=== PATIENT | male | born 1940 | race Caucasian/White ===

== ENCOUNTER 2021-01-20 08:00 | Outpatient (CLI) | payer MEDICARE, OTHER ==
--- NOTE | 2021-01-20 09:28 | XRAY Report ---
PROCEDURE: Ribs w/PA Chest LT INDICATIONS: CONTUSION OF LEFT FRONT WALL OF THORAX TECHNIQUE: 3 views of the left ribs were acquired, along with a single view chest. COMPARISON: None FINDINGS: Surgical changes and devices: None. Bones and chest wall: No fractures or dislocations. No suspicious bony lesions. Overlying soft tis sues appear unremarkable. Lungs and pleura: No pleural effusions or pneumothorax. Lungs appear clear. Mediastinum: Mediastinal contours appear normal. Heart size is normal. IMPRESSION: No displaced rib fracture. No acute cardiopulmonary disease process. Reviewed by: Beth Bond MD, PhD on 01/20/2021 9:26 AM PDT Approved by: Beth Bond MD, PhD on 01/20/2021 9:26 AM PDT Station ID: [id number]
== END 2021-01-20 23:59 | disposition home or self-care (01) ==
LOC: DI.S 08:00
PROVIDERS: ATTEND Physician Assistant Medical
DX: S20.212D Contusion of left front wall of thorax, subsequent encounter (principal)

== ENCOUNTER 2023-05-10 02:36 | Outpatient (CLI) | payer OTHER | END 2023-05-10 02:37 | disposition critical access hospital (66) | LOC: EMS 02:36 | DX: R53.1 Weakness (principal); R53.83 Other fatigue | CPT/HCPCS: A0425; A0427 ==

== ENCOUNTER 2023-05-10 03:15 | Emergency (ER) | payer MEDICARE, OTHER ==
[2023-05-10 03:38] LABS: BASOPHILS % (AUTO) 0.4 %; EOSINOPHILS # (AUTO) 0.2 10^3/uL (0.0-0.7); EOSINOPHILS % (AUTO) 2.2 %; HCT - HEMATOCRIT 45.4 % (42.0-52.0); HGB - HEMOGLOBIN 15.1 g/dL (14.0-18.0); LYMPHOCYTES # (AUTO) 1.5 10^3/uL (1.5-3.5); LYMPHOCYTES % (AUTO) 17.8 %; MEAN CORPUSCULAR HEMOGLOBIN 30.1 pg (27.0-31.0); MEAN CORPUSCULAR HGB CONC 33.3 g/dL (32.0-36.0); MEAN CORPUSCULAR VOLUME 90.6 fL (80.0-94.0); MEAN PLATELET VOLUME 9.9 fL (7.4-11.4); NEUTROPHILS # (AUTO) 5.5 10^3/uL (1.5-6.6); PLT - PLATELET COUNT 149 10^3/uL (130-450); RED BLOOD COUNT 5.01 10^6/uL (4.70-6.10); RED CELL DISTRIBUTION WIDTH 14.6 % (12.0-15.0); WHITE BLOOD COUNT 8.2 x10^3/uL (4.8-10.8)
--- NOTE | 2023-05-10 03:40 | ED Physician Documentation ---
History of Present Illness - Stated complaint Stated Complaint: GEN WEAKNESS - History obtained from History obtained from: Patient - Additonal information Additional information: Patient is an 82-year-old male presenting for evaluation of generalized weakness that he noticed in the middle of the night. Patient reports having decreased oral intake throughout the day with only drinking a glass of lemonade and a Coke today. He also reports not eating much for dinner but reports that he did eat a [place] bar. Patient woke up in the middle of the night feeling very hot and was trying to cool down but felt very weak. Medics note that his house is very warm and that his bedroom feels like at least 90 degrees despite the use of fans. There is no central AC or home AC units. Patient was able to ambulate to their stretcher. They started an IV and started administering IV fluids. Patient reports already feeling better. No headache or syncope. No chest pain, shortness of air, abdominal symptoms. Review of Systems Constitutional: denies: Fever Cardiac: denies: Chest pain / pressure Respiratory: denies: Dyspnea GI: denies: Abdominal Pain Neurologic: denies: Headache PD PAST MEDICAL HISTORY - Allergies Allergies/Adverse Reactions: Allergies Allergy/AdvReac Type Severity Reaction Status Date / Time Penicillins Allergy Hives Verified 05/10/23 03:28 PD ED PE NORMAL - General General: Alert and oriented X 3, No acute distress, Well developed/nourished - HEENT HEENT: Atraumatic, PERRL, EOMI - Neck Neck: Supple, no meningeal sign - Cardiac Cardiac: RRR, No murmur - Respiratory Respiratory: No respiratory distress, Clear bilaterally - Abdomen Abdomen: Soft, Non tender - Derm Derm: Warm and dry - Extremities Extremities: Other (Bilateral lower extremity edema) - Neuro Neuro: Alert and oriented X 3, No motor deficit, No sensory deficit, Normal speech, Other (Normal gait) Results - Vitals Vitals: Vital Signs - 24 hr 05/10/23 05/10/23 05/10/23 03:28 04:29 04:53 Temperature 36.0 C L Heart Rate 72 78 75 Respiratory 16 16 16 Rate Blood Pressure 176/75 H 174/69 H 148/97 H O2 Saturation 98 99 99 Oxygen O2 Source Room air - EKG (time done) 0330 EKG releavant findings:: EKG personally interpreted by author of this note. Relevant findings are: Rate 74, normal sinus rhythm, no STEMI Rate: Rate (enter#) (74) Rhythm: NSR Intervals: No: Prolonged QT Ischemia: No: ST elevation c/w ischemia Compare to prior EKG: Old EKG unavailable - Labs Labs: Laboratory Tests 05/10/23 05/10/23 03:24 03:24 WBC 8.2 RBC 5.01 Hgb 15.1 Hct 45.4 MCV 90.6 MCH 30.1 MCHC 33.3 RDW 14.6 Plt Count 149 MPV 9.9 Neut # (Auto) 5.5 Lymph # (Auto) 1.5 Dawson # (Auto) 1.0 Eos # (Auto) 0.2 Baso # (Auto) 0.0 Absolute Nucleated RBC 0.00 Nucleated RBC % 0.0 Sodium 135 Potassium 3.6 Chloride 104 Carbon Dioxide 22 Anion Gap 9.0 BUN 28 H Creatinine 1.5 H Estimated GFR (MDRD) 45 L Glucose 240 H Calcium 9.6 Total Bilirubin 1.1 H AST 17 ALT 15 Alkaline Phosphatase 46 Total Protein 7.2 Albumin 4.3 Globulin 2.9 Albumin/Globulin Ratio 1.5 Lipase 6 L PD Medical Decision Making - ED course Complexity details: reviewed results, re-evaluated patient, d/w patient, d/w family ED course: Patient presenting for evaluation of generalized weakness in the setting of decreased oral intake today and warmer temperatures. EMS noted that the home temperature seem to be quite elevated inside. Patient has no focal deficits. No chest pain to suggest ACS. Does not appear septic. Feeling better being in a cooler environment and with IV fluids. CBC and chemistries obtained and reviewed without significant abnormalities. Creatinine is 1.5 which seems consistent with prior labs for the patient. Labs from [facility] in April 2022 demonstrated creatinine of 1.62. Patient received IV fluids which were initiated from EMS. He reports feeling back to his usual self. He was counseled on the importance of hydration as well as trying to stay in a cooler environment. Patient is counseled on concerning symptoms to return for. Patient and are contemplating staying in a hotel for the next several days. Departure - Departure Disposition: 01 Home, Self Care Clinical Impression: Weakness Condition: Stable Instructions: ED Weakness [facility] Comments: You were evaluated for weakness this evening which is likely related to a combination of dehydration as well as the temperature of your environment. It is important to stay hydrated and eat proper meals. Given the higher temperatures it is also important to try and limit your heat exposure or stay in a cooler environment. If you develop any new or worsening symptoms please return to the emergency department. Forms: PCP List Discharge Date/Time: 05/10/23 04:53
--- OUTSIDE RECORDS SUMMARY | 2023-05-10 03:45 | EXTERNAL MEDICAL SUMMARY RPT | Continuity of Care Document ---
Author Name Unknown Address [address] [place] [address] Phone Organization [facility] Address [address] [place] [address] Phone Care Team Providers Care B2B Sales Consultant Name Role Phone Unavailable Unavailable Unavailable Stacey Ceronp, Jason Unavailable Unavailabl e Pedro Castellano, Yarelis Wray Unavailable Unavailabl e Medications date description facility 2023-02-16 00:00 mupirocin [facility] [place] 2023-02-16 00:00 mupirocin [facility] [place] 2023-02-16 00:00 cephalexin [facility] [place] 2023-02-16 00:00 cephalexin [facility] [place] 2023-02-16 00:00 cephalexin [facility] [place] 2023-02-16 00:00 cephalexin [facility] [place] 2023-02-16 00:00 mupirocin [facility] [place] 2023-02-16 00:00 mupirocin [facility] [place] 2023-02-16 00:00 cephalexin [facility] [place] 2023-02-16 00:00 cephalexin [facility] [place] 2023-02-16 00:00 mupirocin [facility] [place] 2023-02-16 00:00 mupirocin [facility] [place] 2023-02-16 00:00 cephalexin [facility] [place] 2023-02-16 00:00 cephalexin [facility] [place] 2023-02-20 00:00 [facility]su[facility]atin [facility] 2023-02-21 00:00 [facility]suvastatin [facility] 2023-02-23 00:00 [facility]suvastatin [facility] 2023-02-20 00:00 [facility]suvastatin [facility] 2023-02-21 00:00 [facility]suvastatin [facility] 2023-02-23 00:00 [facility]suvastatin [facility] 2023-02-20 00:00 [facility]suvastatin [facility] 2023-02-21 00:00 [facility]suvastatin [facility] 2023-02-23 00:00 rosuvastatin [facility] [place] 2023-02-20 00:00 rosuvastatin [facility] [place] 2023-02-21 00:00 rosuvastatin [facility] [place] 2023-02-23 00:00 rosuvastatin [facility] [place] 2023-02-16 00:00 mupirocin [facility] [place] 2023-02-16 00:00 mupirocin [facility] Problems date description facility 2023-02-16 00:00 Cellulitis [facility] [place] 2023-02-16 00:00 Cellulitis [facility] 2023-02-16 00:00 Cellulitis and absce ss of unspecified sites [facility] 2023-02-16 00:00 Cellulitis and absce ss of unspecified sites [facility] 2023-02-16 00:00 Cellulitis, unspecified [facility] 2023-02-16 00:00 Cellulitis, unspecified [facility] Procedures date description facility 2023-02-16 00:00 Visit Code Hold [facility] 2023-02-16 00:00 Visit Code Hold [facility] [place] Social History date description facility 2023-02-16 00:00 Never smoker [facility] [place] 2023-02-16 00:[address] Vital Signs date measurement value units 2023-02-16 00:00 BMI 34.33 kg/m2 2023-02-16 00:00 BP_diastolic 65 mmHg 2023-02-16 00:00 BP_systolic 104 mmHg 2023-02-16 00:00 heart_rate 71 /min 2023-02-16 00:00 height_metric 172.72 cm 2023-02-16 00:00 height_standard 68 in 2023-02-16 00:00 respiration_rate 18 /min 2023-02-16 00:00 weight_metric 102.06 kg 2023-02-16 00:00 weight_standard 225 lb
[2023-05-10 03:54] LABS: ALBUMIN 4.3 g/dL (3.2-5.5); ALBUMIN/GLOBULIN RATIO 1.5 (1.0-2.2); BILIRUBIN,TOTAL 1.1 mg/dL (0.2-1.0); CALCIUM 9.6 mg/dL (8.5-10.3); CREATININE 1.5 mg/dL (0.6-1.3); POTASSIUM 3.6 mmol/L (3.5-4.5); TOTAL PROTEIN 7.2 g/dL (6.4-8.9)
[2023-05-10 04:33] VITALS: O2SAT 99
[2023-05-10 04:55] VITALS: BP 148/97
== END 2023-05-10 04:53 | disposition home or self-care (01) ==
LOC: EDUNIT# → ED 03:15
DX: R53.1 Weakness (principal)
CPT/HCPCS: 36415; 80053; 83690; 85025; 93005; 99283; 99284

== ENCOUNTER 2023-05-11 07:19 | Outpatient (CLI) | payer OTHER | END 2023-05-11 07:20 | disposition short-term general hospital (02) | LOC: EMS 07:19 | DX: R41.0 Disorientation, unspecified (principal); R26.81 Unsteadiness on feet | CPT/HCPCS: A0425; A0429 ==

== ENCOUNTER 2023-05-26 14:54 | Emergency (ER) | payer MEDICARE, OTHER ==
[2023-05-26 15:32] LABS: BASOPHILS % (AUTO) 0.6 %; EOSINOPHILS # (AUTO) 0.1 10^3/uL (0.0-0.7); EOSINOPHILS % (AUTO) 2.1 %; HGB - HEMOGLOBIN 14.3 g/dL (14.0-18.0); LYMPHOCYTES # (AUTO) 0.5 10^3/uL (1.5-3.5); LYMPHOCYTES % (AUTO) 10.1 %; MEAN CORPUSCULAR HEMOGLOBIN 29.9 pg (27.0-31.0); MEAN CORPUSCULAR HGB CONC 33.3 g/dL (32.0-36.0); MEAN PLATELET VOLUME 9.3 fL (7.4-11.4); MONOCYTES # (AUTO) 0.7 10^3/uL (0.0-1.0); MONOCYTES % (AUTO) 13.5 %; NEUTROPHILS # (AUTO) 3.8 10^3/uL (1.5-6.6); NEUTROPHILS % (AUTO) 72.9 %; PLT - PLATELET COUNT 201 10^3/uL (130-450); RED BLOOD COUNT 4.78 10^6/uL (4.70-6.10); RED CELL DISTRIBUTION WIDTH 14.9 % (12.0-15.0); WHITE BLOOD COUNT 5.3 x10^3/uL (4.8-10.8)
[2023-05-26 15:45] LABS: ALBUMIN 4.3 g/dL (3.2-5.5); ALBUMIN/GLOBULIN RATIO 1.5 (1.0-2.2); ALKALINE PHOSPHATASE 56 IU/L (42-121); ALT ALANINE AMINOTRANSFERASE 39 IU/L (10-60); AST ASPARTATE AMINOTRANSFERASE 28 IU/L (10-42); BILIRUBIN,TOTAL 1.2 mg/dL (0.2-1.0); BUN - BLOOD UREA NITROGEN 16 mg/dL (6-20); CALCIUM 9.6 mg/dL (8.5-10.3); CARBON DIOXIDE - CO2 26 mmol/L (21-32); CHLORIDE 101 mmol/L (101-111); CREATININE 1.2 mg/dL (0.6-1.3); GFR - MDRD 58 (>89); GLUCOSE 163 mg/dL (74-104); POTASSIUM 3.8 mmol/L (3.5-4.5); SODIUM 134 mmol/L (135-145); TOTAL PROTEIN 7.2 g/dL (6.4-8.9)
[2023-05-26 15:48] LABS: LIPASE < 10 U/L (11-82)
--- NOTE | 2023-05-26 16:05 | ED Physician Documentation ---
PD HPI ALTERED MENTAL STATUS - Stated complaint Stated Complaint: CONFUSED, DISORIENTED - Chief complaint Chief Complaint: General - History obtained from History obtained from: Patient, Family - History of Present Illness Timing - onset: How many hours ago (about 12 hours ago.), Today Timing - details: Abrupt onset, Now resolved (he is having improvement of word search and aphasia and is at normal function level per .) Quality / character: Confused (trouble with finding words and expressing himself. awoke at about 3 am with this and was still present when awoke again in morning. Improvement started when getting to ED and is at normal function when I am seeing him, per his .) Associated symptoms: No: Fever, Headache, Dyspnea, Cough, NVD, Focal weakness Contributing factors: No: Anticoagulated, Diabetic, Recent med change Basline status: Alert and oriented X 3, Independent Similar symptoms before: No diagnosis (had similar 2 prior times, once seen here 2 weeks ago with IV lfuids and labs given with improved symptoms. Then seen in [facility] 1 week ago with similar and had MRI and CT of head without acute finding, per . No new meds. told to take baby ASA daily.) Recently seen: Emergency Dept, Admitted (1 week ago for 3 days, for similar symptoms. Had concern of fever, so there for few days to eval for that, per .) Review of Systems Constitutional: denies: Fever, Chills Nose: denies: Rhinorrhea / runny nose, Congestion Throat: denies: Sore throat Cardiac: denies: Chest pain / pressure Respiratory: denies: Dyspnea, Cough GI: denies: Nausea, Vomiting Neurologic: denies: Focal weakness, Numbness, Headache PD PAST MEDICAL HISTORY - Past Medical History Cardiovascular: None Respiratory: None Neuro: None Endocrine/Autoimmune: None - Present Medications Home Medications: Ambulatory Orders Medication Instructions Recorded Confirmed Albuterol Sulfate [Proair 90 mcg IH BID 05/26/23 05/26/23 Respiclick] Aspirin Chewable [St Myles 81 mg PO DAILY 05/26/23 05/26/23 Aspirin] Clopidogrel [Plavix] 75 mg PO DAILY #30 tablet 05/26/23 Empagliflozin [Jardiance] 10 mg PO DAILY 05/26/23 05/26/23 Insulin Aspart [NovoLOG] 18 unit SUBQ TIDWM 05/26/23 05/26/23 Insulin Detemir [Levemir Flexpen] 28 unit SQ BID 05/26/23 05/26/23 Levothyroxine Sodium [Euthyrox] 200 mcg PO DAILY 05/26/23 05/26/23 Metoprolol Tartrate [Lopressor] 100 mg PO BID 05/26/23 05/26/23 Rosuvastatin Calcium 20 mg PO DAILY 05/26/23 05/26/23 Terbinafine HCl [Lamisil At] 12 gm TP DAILY 05/26/23 05/26/23 hydroCHLOROthiazide [Hydrodiuril] 12.5 mg PO DAILY 05/26/23 05/26/23 - Allergies Allergies/Adverse Reactions: Allergies Allergy/AdvReac Type Severity Reaction Status Date / Time Penicillins Allergy Hives Verified 05/26/23 15:13 metformin AdvReac Cramps Verified 05/26/23 15:13 PD ED PE NORMAL - Vitals Vital signs reviewed: Yes - General General: Alert and oriented X 3, No acute distress, Well developed/nourished - Neck Neck: Supple, no meningeal sign, No adenopathy - Cardiac Cardiac: RRR, No murmur - Respiratory Respiratory: Clear bilaterally - Abdomen Abdomen: Soft, Non tender - Derm Derm: Normal color, Warm and dry - Neuro Neuro: Alert and oriented X 3, No motor deficit, No sensory deficit, Normal speech Eye Opening: Spontaneous Motor: Obeys Commands Verbal: Oriented GCS Score: 15 Results - Vitals Vitals: Vital Signs - 24 hr 05/26/23 05/26/23 05/26/23 15:05 16:00 18:44 Temperature 36.7 C 37 C Heart Rate 71 77 81 Respiratory 20 16 16 Rate Blood Pressure 175/65 H 146/67 H 145/91 H O2 Saturation 98 98 100 Oxygen O2 Source Room air - Labs Labs: Laboratory Tests 05/26/23 05/26/23 05/26/23 15:28 15:28 15:28 WBC 5.3 RBC 4.78 Hgb 14.3 Hct 43.0 MCV 90.0 MCH 29.9 MCHC 33.3 RDW 14.9 Plt Count 201 MPV 9.3 Neut # (Auto) 3.8 Lymph # (Auto) 0.5 L Kimble # (Auto) 0.7 Eos # (Auto) 0.1 Baso # (Auto) 0.0 Absolute Nucleated RBC 0.00 Nucleated RBC % 0.0 Sodium 134 L Potassium 3.8 Chloride 101 Carbon Dioxide 26 Anion Gap 7.0 BUN 16 Creatinine 1.2 Estimated GFR (MDRD) 58 L Glucose 163 H Calcium 9.6 Total Bilirubin 1.2 H AST 28 ALT 39 Alkaline Phosphatase 56 Total Protein 7.2 Albumin 4.3 Globulin 2.9 Albumin/Globulin Ratio 1.5 Lipase < 10 L TSH 6.80 H Urine Color Urine Clarity Urine pH Ur Specific [place] Urine Protein Urine Glucose (UA) Urine Ketones Urine Occult Blood Urine Nitrite Urine Bilirubin Urine Urobilinogen Ur Leukocyte Esterase Urine RBC Urine WBC Ur Squamous Epith Cells Urine Bacteria Ur Microscopic Review Urine Culture Comments 05/26/23 16:20 WBC RBC Hgb Hct MCV MCH MCHC RDW Plt Count MPV Neut # (Auto) Lymph # (Auto) Kimble # (Auto) Eos # (Auto) Baso # (Auto) Absolute Nucleated RBC Nucleated RBC % Sodium Potassium Chloride Carbon Dioxide Anion Gap BUN Creatinine Estimated GFR (MDRD) Glucose Calcium Total Bilirubin AST ALT Alkaline Phosphatase Total Protein Albumin Globulin Albumin/Globulin Ratio Lipase TSH Urine Color YELLOW Urine Clarity CLEAR Urine pH 6.5 Ur Specific [place] 1.010 Urine Protein 30 H Urine Glucose (UA) 500 H Urine Ketones NEGATIVE Urine Occult Blood TRACE-INTA Urine Nitrite NEGATIVE Urine Bilirubin NEGATIVE Urine Urobilinogen 0.2 (NORMAL) Ur Leukocyte Esterase NEGATIVE Urine RBC 0-5 Urine WBC 0-3 Ur Squamous Epith Cells NONE SEEN Urine Bacteria None Seen Ur Microscopic Review INDICATED Urine Culture Comments NOT INDICATED PD Medical Decision Making - ED course Complexity details: reviewed old records (record/labs/info from 2 weeks ago here reviewed. Asked for records from [facility] but no response after couple of hours. ), re-evaluated patient ( says pt is at baseline here, with improved symtoms aftera bout 12 hours, similar to prior 2 episodes. ), considered differential (confused and trouble speaking. Consider poor perfusion, such as TIA, hupotension, rhythm process, med side effect, etc. ), d/w patient, d/w family () ED course: sounds likely TIA type symptoms. No new meds. ormal BP/vitals. Departure - Departure Disposition: Home, Self Care Clinical Impression: Transient confusion, Expressive aphasia Condition: Stable Record reviewed to determine appropriate education?: Yes Instructions: ED Transient Ischemic Attack Prescriptions: Clopidogrel [Plavix] 75 mg PO DAILY #30 tablet Comments: Your basic electrolytes and blood count and urine test are good here. Your symptoms sound concerning for TIAs and the episodes that they have happened. Continue with your baby aspirin. I would add Plavix 75 mg daily to try to reduce the chance of clogging up blood vessels in the brain. You could to have your primary care refer you to neurology for further follow-up follow-up and evaluation. I would hold your cholesterol statin medication on the off chance that sometimes those can cause confusion and some people even if you have been on it for a while. I sent your prescription to [facility] in [place]. Forms: PCP List Discharge Date/Time: 05/26/23 18:54
[2023-05-26 16:29] LABS: BILIRUBIN,URINE NEGATIVE (NEGATIVE); GLUCOSE, URINE (UA) 500 mg/dL (NEGATIVE); KETONES,URINE (UA) NEGATIVE (NEGATIVE); LEUKOCYTE ESTERASE, URINE NEGATIVE (NEGATIVE); NITRITE,URINE NEGATIVE (NEGATIVE); OCCULT BLOOD,URINE TRACE-INTA (NEGATIVE); PH,URINE 6.5 PH (5.0-7.5); PROTEIN,URINE 30 mg/dL (NEGATIVE); UROBILINOGEN,URINE 0.2 (NORMAL) E.U./dL (NORMAL)
[2023-05-26 16:43] LABS: CLARITY,URINE CLEAR (CLEAR)
[2023-05-26 16:44] LABS: BACTERIA,URINE None Seen /HPF (None Seen); RBC,URINE 0-5 /HPF (0-5); SQUAMOUS EPITHELIAL CELL,UR NONE SEEN (<= Few); WBC,URINE 0-3 /HPF (0-3)
[2023-05-26] MEDS ORDERED: SODIUM CHLORIDE 0.9% 1,000 ML IV STA (16:46)
[2023-05-26] MEDS ORDERED: CLOPIDOGREL 75 MG TABLET PO STA (17:02)
[2023-05-26 18:56] VITALS: BP 145/91; O2SAT 100
== END 2023-05-26 18:54 | disposition home or self-care (01) ==
LOC: ED 14:54
DX: R41.0 Disorientation, unspecified (principal); R13.0 Aphagia
CPT/HCPCS: 36415; 80053; 81001; 83690; 84443; 85025; 99283; A9270; 81003; 87086

== ENCOUNTER 2023-08-28 08:00 | Outpatient (CLI) | payer MEDICARE, OTHER | END 2023-08-28 08:01 | disposition home or self-care (01) | LOC: LAB.S 08:00 | PROVIDERS: ATTEND Registered Nurse | DX: R05.1 Acute cough (principal) ==

== ENCOUNTER 2023-08-28 08:00 | Outpatient (CLI) | payer MEDICARE, OTHER ==
--- NOTE | 2023-08-28 15:33 | XRAY Report ---
PROCEDURE: Chest 2 View X-Ray INDICATIONS: ACUTE COUGH TECHNIQUE: 2 views of the chest were acquired. COMPARISON: Chest x-ray 01/12/2021 FINDINGS: Surgical changes and devices: None. Lungs and pleura: No pleural effusions or pneumothorax. Lungs are clear. Mediastinum: Mediastinal contours appear normal. Heart size is enlarged Bones and chest wall: No suspicious bony lesions. Overlying soft tissues appear unremarkable. IMPRESSION: No acute cardiopulmonary process. Reviewed by: Daphne Maya MD on 08/28/2023 3:32 PM [facility] Approved by: Daphne Maya MD on 08/28/2023 3:32 PM [facility] Station ID: [id number]
== END 2023-08-28 23:59 | disposition home or self-care (01) ==
LOC: DI.S 08:00
PROVIDERS: ATTEND Registered Nurse
DX: R05.1 Acute cough (principal)